=== PATIENT | male | born 1990 | race Caucasian/White ===

== ENCOUNTER 2024-09-27 16:42 | Emergency (ER) | payer SELFPAY ==
[~2024-09-27] VITALS: Ht 172.7 cm; Wt 85.0 kg
[2024-09-27 16:47] VITALS: O2SAT 99
[2024-09-27] MEDS: SODIUM CHLORIDE 0.9% 1,000 ML IV ONE (17:55)
[2024-09-27] MEDS: ONDANSETRON HCL 4MG/2ML INJ IV ONE (17:55)
[2024-09-27] MEDS: MORPHINE SULFATE 4 MG/ML INJ (FOR IV/IM USE) IV ONE (17:56)
[2024-09-27] MEDS: TETANUS, DIPHTHERIA, PERTUSSIS VAC/PF 0.5ML (>10YR OLD) IM ONE (17:56)
[2024-09-27 18:26] LABS: BASOPHILS % 0.4 % (0.0-2.0); EOSINOPHILS % 1.1 % (0.0-5.0); HEMATOCRIT. 42.9 % (42.0-52.0); HEMOGLOBIN. 14.4 g/dL (14.0-18.0); LYMPHOCYTES % 25.7 % (20.0-50.0); MEAN CORPUSCULAR HEMOGLOBIN 28.9 pg (28.0-32.0); MEAN CORPUSCULAR HGB CONC 33.6 g/dL (31.0-37.0); MEAN CORPUSCULAR VOLUME 86.2 fL (80.0-94.0); MEAN PLATELET VOLUME 8.1 fl (7.4-10.4); MONOCYTES % 6.7 % (2.0-8.0); NEUTROPHILS % 66.1 % (40.0-76.0); PLATELET 281 x1000/uL (130-400); RED BLOOD CELL COUNT 4.98 mill/uL (4.7-6.1); WHITE BLOOD COUNT 7.9 x1000/uL (4.5-11.0)
[2024-09-27 18:27] LABS: CHLORIDE 104 mEq/L (98-107); SODIUM 139 mEq/L (136-145)
[2024-09-27 18:28] LABS: CARBON DIOXIDE 30 mEq/L (21-32)
[2024-09-27 18:29] LABS: CALCIUM 9.6 mg/dL (8.7-10.4)
[2024-09-27 18:33] LABS: CREATININE 1.1 mg/dL (0.6-1.3); GLUCOSE 108 mg/dL (70-105)
[2024-09-27 18:34] LABS: UREA NITROGEN BLOOD 16 mg/dL (9-23)
[2024-09-27 18:35] LABS: ALANINE AMINOTRANSFERASE 160 IU/L (10-49); ASPARTATE AMINOTRANSFERASE 61 IU/L (<34); TROPONIN I HIGH SENSITIVITY < 4 ng/L (3.0-53)
[2024-09-27 18:36] LABS: PROTEIN TOTAL 7.3 g/dL (6.0-8.3)
[2024-09-27] MEDS: KETOROLAC 15MG/ML VIAL IV ONE (19:03)
[2024-09-27] MEDS ORDERED: LIDO700A30 TP (19:04)
[2024-09-27] MEDS: LIDOCAINE 5% PATCH TOP SCH (19:11)
[2024-09-27 19:16] LABS: CLARITY URINE CLEAR (CLEAR); COLOR URINE YELLOW (YELLOW); GLUCOSE URINE NEGATIVE (NEGATIVE); KETONES URINE NEGATIVE (NEGATIVE); LEUKOCYTE ESTERASE URINE NEGATIVE (NEGATIVE); NITRITE URINE NEGATIVE (NEGATIVE); OCCULT BLOOD URINE NEGATIVE (NEGATIVE); PH URINE 7.5 (4.5-8.0); PROTEIN URINE NEGATIVE (NEGATIVE); SPECIFIC GRAVITY URINE 1.009 (1.005-1.030); UROBILINOGEN URINE 0.2 E.U./dL (0.2-1.0)
[2024-09-27 19:26] VITALS: BP 115/81; PULSE 90; RESP 12; TEMP 36.9; O2SAT 99
== END 2024-09-27 19:44 | disposition home or self-care (01) ==
LOC: ER 16:42
DX: S22.32XA Fracture of one rib, left side, initial encounter for closed fracture (principal); S50.312A Abrasion of left elbow, initial encounter; R51.9 Headache, unspecified; V23.49XA Other motorcycle driver injured in collision with car, pick-up truck or van in traffic accident, initial encounter; Y93.89 Activity, other specified; Y92.89 Other specified places as the place of occurrence of the external cause; Y99.8 Other external cause status
CPT/HCPCS: 80053; 81003; 85025; 84484; 36415; 71045; 72170; 70450; 72125; 72128; 72131; 71250; 74176; 90715; 93005; 90471; 96361; 96374; 96375; 99291; J1885; J2405; J2270; J7030; Z7610 ×3